=== PATIENT | female | born 1980 | race Caucasian/White ===

== ENCOUNTER 2016-07-21 19:35 | Emergency (ER) | payer MEDICAID ==
[~2016-07-21] VITALS: Ht 157.5 cm; Wt 58.1 kg
[~2016-07-21 19:35] MED LIST: ABILIFY10 MG PO; BENADRYL50 M1 PO; COGENTIN1 M1 PO; DSS250 MG PO; MULTIVITAMINS1 TA1 PO; ZYPREXA15 MG PO
[2016-07-21 20:28] VITALS: BP 131/62
--- NOTE | 2016-07-21 22:24 | NUR ---
PT TO BED 7 AT THIS TIME.
--- NOTE | 2016-07-21 22:24 | NUR ---
Patient being evaluated by Dr. Seaman
--- NOTE | 2016-07-21 22:30 | NUR ---
DR ROWE TO SUTURE RT ELBOW
[2016-07-21] MEDS ORDERED: LIDOCAINE 1% ED 50 ML ONE (22:31)
--- NOTE | 2016-07-21 22:40 | NUR ---
PT WILL WELL
[2016-07-21 22:43] VITALS: BP 131/62
--- NOTE | 2016-07-21 22:44 | NUR ---
Patient discharged with v/s stable. Written and verbal after care instructions given and explained. Patient alert, oriented and verbalized understanding of instructions. Ambulatory with steady gait. All questions addressed prior to discharge. ID band removed. Patient advised to follow up with PMD. Rx of TYLENOL AND BACITRACIN given. Patient educated on indication of medication including possible reaction and side effects. Opportunity to ask questions provided and answered.
== END 2016-07-21 22:44 | disposition home or self-care (01) ==
LOC: MED 19:35
DX: S51.011A Laceration without foreign body of right elbow, initial encounter (principal); W01.0XXA Fall on same level from slipping, tripping and stumbling without subsequent striking against object, initial encounter; Y93.89 Activity, other specified; Y92.89 Other specified places as the place of occurrence of the external cause; Y99.8 Other external cause status
CPT/HCPCS: 12001; 73080; 99284; J2001